=== PATIENT | female | born 1980 | race Caucasian/White ===

== ENCOUNTER 2017-12-24 17:11 | Emergency (ER) | payer SELFPAY ==
[2017-12-24 17:14] VITALS: BP 121/72; BMI 21.9
[2017-12-24 18:38] LABS: BILIRUBIN,URINE NEGATIVE (NEGATIVE); BLOOD/HEMOGLOBIN,URINE NEGATIVE (NEGATIVE); GLUCOSE, URINE NEGATIVE (NEGATIVE); KETONES,URINE NEGATIVE (NEGATIVE); LEUKOCYTE ESTERASE ,URINE NEGATIVE (NEGATIVE); NITRITES,URINE NEGATIVE (NEGATIVE); PROTEIN,URINE NEGATIVE (NEGATIVE); UROBILINOGEN,URINE NORMAL (NORMAL)
[2017-12-24 18:50] LABS: SERUM PREGNANCY TEST, QUAL NEGATIVE <10 mIU/mL
[2017-12-24 18:56] LABS: APPEARANCE,URINE CLEAR (CLEAR); BACTERIA,URINE TRACE /HPF (NEGATIVE); COLOR,URINE YELLOW (YELLOW); RBC,URINE 0-1 /HPF (NEGATIVE); SQUAMOUS EPITHELIAL CELL,UR FEW /HPF (NEGATIVE)
[2017-12-24 19:33] LABS: BASOPHILS # (AUTO) 0.1 X10^3/uL (0.0-0.1); BASOPHILS % (AUTO) 0.6 % (0.2-1.0); EOSINOPHILS # (AUTO) 0.1 x10^3/uL (0.0-0.2); HEMATOCRIT 36.5 % (36.0-47.0); HEMOGLOBIN 12.6 g/dL (12.0-16.0); LYMPHOCYTES % (AUTO) 20.7 % (21.0-51.0); MEAN CORPUSCULAR HEMOGLOBIN 29.9 pg (27.0-34.0); MEAN CORPUSCULAR HGB CONC 34.5 g/dL (33.0-35.0); MEAN CORPUSCULAR VOLUME 86.8 fL (80.0-100.0); MEAN PLATELET VOLUME 10.1 fL (7.4-11.0); MONOCYTES # (AUTO) 0.5 x10^3/uL (0.3-0.8); MONOCYTES % (AUTO) 4.7 % (0.0-13.0); NEUTROPHILS # (AUTO) 7.2 x10^3/uL (2.2-4.8); PLATELET COUNT 335 X10^3/uL (150.0-450.0); RED BLOOD COUNT 4.21 X10^6/uL (3.5-5.4); RED CELL DISTRIBUTION WIDTH 13.7 % (11.6-16.5); WHITE BLOOD COUNT 9.8 X10^3/uL (3.6-10.0)
--- NOTE | 2017-12-24 20:32 | US ---
TRANSABDOMINAL PELVIC ULTRASOUND History: Pelvic pain Comparison: None Technique: Multiple grayscale and color flow Doppler images of the pelvis were obtained transabdomina lly. Findings: The uterus measures 8.5 x 4.2 x 5.2 cm. The endometrial stripe measures 13 mm. The right ovary m easures 3.5 x 1.7 x 3.2 cm. The left ovary measures 1.9 x 1.4 x 2.6 cm. Normal flow in the ovaries bilaterally. No adnexal masses. No free fluid. IMPRESSION: 1. Unremarkable evaluation of the pelvis. Reported By:
--- NOTE | 2017-12-24 20:50 | ED.ABDFE ---
HPI - Time seen Time seen: 19:45 - PCP Primary Care Physician: NFD - Complaint Chief Complaint Doctors Comments: Patient presents with complaint of suprapubic pressure; similar to cyst she had previously. Denies dysuria or fever. Chief Complaint:: PT. C/O LOWER ABDOMINAL PAIN THAT IS SHARP IN NATURE AND THE PAIN EXTENDS DOWN INTO VAGINAL AREA. PT. ALSO STATES SHE HAS A LOT OF PRESSURE. PT. HAS HX. OF OVARIAN CYST. - Source History Provided: Patient - Mode of arrival Mode of Arrival: Ambulatory - Timing Onset of Chief Complaint: 12/22/17 PMH - PMH Past Medical History: Yes Past Medical History: Anxiety Past Surgical History: Yes Surgical History: , DERMATOLOGY NURSE Surgery - Family History History of Family Medical Conditions: Yes Family Medical History: Cancer, Coronary Artery Disease, Heart Failure - Social History Does patient currently use any type of tobacco product: No Have you used tobacco products in the last 12 months: No Type of Tobacco Use: None Does any household member use tobacco: No Alcohol Use: None Do you use any recreational Drugs:: No Lives With: Friend Lives Where: Home - infectious screening In the last 2 months have you had wt loss of >10#?: NO Have you had fever, night sweats or hemotysis?: No Have you traveled outside the country in the last 6 months?: No Isolation: Standard ROS - Review of Systems Eyes: No Symptoms Reported ENTM: No Symptoms Reported Respiratoy: No Symptoms Reported Cardiovascular: No Symptoms Reported Gastrointestinal/Abdominal: No Symptoms Reported Genitourinary: No Symptoms Reported Neurological: No Symptoms Reported Musculoskeletal: No Symptoms Reported Integumentary: No Symptoms Reported Hematologic/Lymphatic: No Symptoms Reported Endocrine: No Symptoms Reported Psychiatric: No Symptoms Reported All Other Systems: Reviewed and Negative PE - Vital Signs Vitals: Temperature 98.1 F Pulse Rate 88 Respiratory Rate 17 Blood Pressure 121/72 O2 Sat by Pulse Oximetry 100 - General Limitations: No Limitations General Appearance: Alert, In No Apparent Distress - Head Head Exam: Normal Inspection, Atraumatic - Eyes Eye exam: Normal Appearance, PERRL, EOMI - ENT ENT Exam: Normal Exam - Neck Neck Exam: Normal Inspection, Full ROM - Chest Chest Inspection: Normal Inspection - Respiratory Respiratory Exam: Normal Lung Sounds Bilat Respiratory Exam: Bilateral Clear to Auscultation - Cardiovascular Cardiovascular Exam: Regular Rate - Abdominal Exam Abdominal Exam: Normal Inspection Abdominal Tenderness: negative: RUQ, RLQ, LUQ, LLQ, Epigastrium, Suprapubic, Diffuse, Mild, Moderate, Severe, Other - Rectal Rectal Exam: Deferred - Back Back Exam: Normal Inspection - Extremeties Extremities Exam: Normal Inspection, Full ROM - External Exam: Female: Deferred : Speculum Exam (Female): Deferred : Bimanual Exam (female): Deferred - Neurologic Neurological Exam: Alert, Oriented X3, CN II-XII Intact - Psychiatric Psychiatric Exam: Normal Affect - Skin Skin Exam: Warm, Dry, Intact ROR - Labs Reviewed Result Diagrams: 12/24/17 18:30 Laboratory: WBC 9.8 X10^3/uL (3.6-10.0) 12/24/17 18:30 RBC 4.21 X10^6/uL (3.5-5.4) 12/24/17 18:30 Hgb 12.6 g/dL (12.0-16.0) 12/24/17 18:30 Hct 36.5 % (36.0-47.0) 12/24/17 18:30 MCV 86.8 fL (80.0-100.0) 12/24/17 18:30 MCH 29.9 pg (27.0-34.0) 12/24/17 18:30 MCHC 34.5 g/dL (33.0-35.0) 12/24/17 18:30 RDW 13.7 % (11.6-16.5) 12/24/17 18:30 Plt Count 335 X10^3/uL (150.0-450.0) 12/24/17 18: MPV 10.1 fL (7.4-11.0) 12/24/17 18:30 Neut % 73.0 % (42.0-75.0) 12/24/17 18: Lymph % 20.7 % (21.0-51.0) L 12/24/17 18: [place] % 4.7 % (0.0-13.0) 12/24/17 18:30 Eos % 1.0 % (0.9-2.9) 12/24/17 18: Baso % 0.6 % (0.2-1.0) 12/24/17 18:30 Neut # 7.2 x10^3/uL (2.2-4.8) H 12/24/17 18:30 Lymph # 2.0 X10^3/uL (1.3-2.9) 12/24/17 18:30 [place]anner # 0.5 x10^3/uL (0.3-0.8) 12/24/17 18:30 Eos # 0.1 x10^3/uL (0.0-0.2) 12/24/17 18:30 Baso # 0.1 X10^3/uL (0.0-0.1) 12/24/17 18:30 Absolute Nucleated RBC 0.0 /100WBC 12/24/17 18:30 C-Reactive Protein 2.80 mg/L (0-3.0) 12/24/17 18:30 HCG, Qual Negative <10 mIU/mL 12/24/17 18:30 Specimen Type Clean catch urine 12/24/17 18:20 Urine Color Yellow (YELLOW) 12/24/17 18:20 Urine Appearance Clear (CLEAR) 12/24/17 18:20 Urine pH 6.0 (5.0 - 8.0) 12/24/17 18:20 Ur Specific [place] 1.015 (1.000-1.030) 12/24/17 18:20 Urine Protein Negative (NEGATIVE) 12/24/17 18:20 Urine Glucose (UA) Negative (NEGATIVE) 12/24/17 18:20 Urine Ketones Negative (NEGATIVE) 12/24/17 18:20 Urine Occult Blood Negative (NEGATIVE) 12/24/17 18:20 Urine Nitrite Negative (NEGATIVE) 12/24/17 18:20 Urine Bilirubin Negative (NEGATIVE) 12/24/17 18:20 Urine Urobilinogen Normal (NORMAL) 12/24/17 18:20 Ur Leukocyte Esterase Negative (NEGATIVE) 12/24/17 18:20 Urine RBC 0-1 /HPF (NEGATIVE) 12/24/17 18:20 Urine WBC 0-1 /HPF (NEGATIVE) 12/24/17 18:20 Ur Squamous Epith Cells Few /HPF (NEGATIVE) 12/24/17 18:20 Urine Bacteria Trace /HPF (NEGATIVE) 12/24/17 18:20 Ur Culture Indicated? No/not indicated 12/24/17 18:20 - XRAY XRAY Interpreted by: Radiologist (Pelv US: The uterus measures 8.5x4.2x5.2. The endometrial stripe measures 13mm. The right ovary measures 3.5x1.7x3.2. The left ovary measures 1.9x1.4x2.6cm. Normal flow in the ovaries bilaterally. No adnexal masses. No free fluid. Impression: Unremarkable evaluation of the pelvis.) - Diagnosis Discharge Problem: Normal Pelvic Ultrasound - Discharge Plan Condition: Stable - Follow ups/Referrals Follow ups/Referrals: NFD,None [Primary Care Provider] - 3 days - Instructions
== END 2017-12-24 21:03 | disposition home or self-care (01) ==
LOC: ER 17:19
DX: R10.84 Generalized abdominal pain (principal)
CPT/HCPCS: 36415; 76856; 81001; 84703; 85025; 86140; 99282; 99283